=== PATIENT | female | born 2000 | race Two or more races ===

== ENCOUNTER 2024-01-06 10:38 | Emergency (ER) | payer OTHER ==
[~2024-01-06] VITALS: Ht 157.5 cm; Wt 59.0 kg
[2024-01-06 11:04] VITALS: BP 121/82; TEMP 97.9
[2024-01-06] MEDS ORDERED: METH4TAB3 PO (11:12)
[2024-01-06] MEDS ORDERED: HYDR-500 PO (11:12)
[2024-01-06 11:32] VITALS: O2SAT 100
== END 2024-01-06 11:37 | disposition home or self-care (01) ==
LOC: ER 10:58
DX: R21 Rash and other nonspecific skin eruption (principal); T37.0X5A Adverse effect of sulfonamides, initial encounter; L27.1 Localized skin eruption due to drugs and medicaments taken internally; F17.200 Nicotine dependence, unspecified, uncomplicated; Y92.89 Other specified places as the place of occurrence of the external cause